=== PATIENT | female | born 1995 | race African-American/Black ===

== ENCOUNTER 2018-04-27 13:39 | Emergency (ER) | payer MEDICAID ==
[~2018-04-27] VITALS: Ht 160 cm; Wt 53.0 kg
[2018-04-27 13:46] VITALS: BP 104/51; PULSE 82; RESP 18; Ht 160 cm; Wt 53.0 kg
[2018-04-27] MEDS ORDERED: AZITHROMYCIN 250 MG TAB PO ONE (14:30)
[2018-04-27] MEDS ORDERED: CEFTRIAXONE 250 MG INJ IM ONE (14:30)
[2018-04-27] MEDS ORDERED: FLUC150T PO (17:10)
[2018-04-27] MEDS ORDERED: NITR-58 PO (17:10)
--- NOTE | 2018-04-27 19:44 | ERD ---
ER Documentation Chief Complaint Chief Complaint Dysuria, vaginal discharge (green) X 3 days HPI 22-year-old female patient with no significant past medical history presents to ED complaining of dysuria, vaginal discharge that started about 3 days ago. Patient reports the last time she was sexually active, was last week. States that she has been dealing with this for the last few months. Reports that she went to go follow-up with [facility] got a STD testing, which was negative. Reports that she had sexual intercourse after warts, and now is here with vaginal discharge that is green. Reports she is concerned for gonorrhea and chlamydia. States that she would like to be treated for it. Denies any fever, chills, abdominal pain, nausea, vomiting, diarrhea, neck stiffness. Reports that her last menstruation was on April 14, 2018. ROS All systems reviewed and are negative except as per history of present illness. Medications Home Meds Active Scripts Nitrofurantoin Monohyd Macrocr* (Macrobid*) 100 Mg Capsr, 100 MG PO BID for 7 Days, CAP Prov:DORIS DEJESUS PA-C 04/27/18 Fluconazole* (Diflucan*) 150 Mg Tablet, 150 MG PO ONCE, #1 TAB Prov:DORIS DEJESUS PA-C 04/27/18 PMhx/Soc Medical and Surgical Hx: pt denies Medical Hx, pt denies Surgical Hx Hx Alcohol Use: No Hx Substance Use: No Hx Tobacco Use: No Smoking Status: Never smoker FmHx Family History: No diabetes, No coronary disease Physical Exam Vitals Vital Signs Date Temp Pulse Resp B/P (MAP) Pulse Ox O2 O2 Flow FiO2 Time Delivery Rate 04/27/18 99.4 17:27 04/27/18 98.2 82 18 104/51 100 13:46 (68) Physical Exam Const: Nun-trt-wevszjtvm, well-nourished. In no acute distress. Head: Atraumatic, normocephalic Eyes: Normal Conjunctiva without injection. No purulent discharge. ENT: Normal external ear, nose. Moist oropharynx without tonsillar exudates. Non-erythematous pharynx. Uvula midline. No drooling. No trismus. Neck: No cervical midline tenderness. Full range of motion. No meningismus. No cervical lymphadenopathy. No JVD. Resp: Clear to auscultation bilaterally. No wheezing, rhonchi, rales, or crackles. No accessory muscle use. No retractions. Cardio: Regular rate and rhythm. No murmurs, rubs or gallops. Abd: Soft, nontender, non distended. Normal bowel sounds. No palpable masses. No rebound tenderness. No guarding. Negative McBurney's point. Negative psoas sign. Negative obturator sign. : See exam in [facility]. Skin: No petechiae or rashes Back: No midline tenderness. No CVA tenderness. Ext: No cyanosis, or edema. Neur: Awake and alert. Normal gait. Normal coordination. Psych: Normal Mood and Affect Results 24 hrs Laboratory Tests Test 04/27/18 14:39 04/27/18 14:47 POC Beta HCG, Qualitative NEGATIVE Chlamydia trachomatis RNA (TMA) NOT DETECTED Chlamydia/GC Comment SEE NOTE Neisseria gonorrhoeae RNA (TMA) NOT DETECTED Bedside Urine pH (LAB) 7.0 Bedside Urine Protein (LAB) Negative Bedside Urine Glucose (UA) Negative Bedside Urine Ketones (LAB) Negative Bedside Urine Blood Trace-intact Bedside Urine Nitrite (LAB) Negative Bedside Urine Leukocyte Esterase (L 3+ Current Medications Medications Dose Sig/Yony Start Time Status Last (Trade) Ordered Route PRN Stop Time Admin Dose Reason Admin 1,000 mg ONCE ONCE 04/27/18 DC 04/27/18 Azithromycin PO 14:30 04/27/18 14:42 (Zithromax) 14:31 Ceftriaxone 250 mg ONCE ONCE 04/27/18 DC 04/27/18 Sodium IM 14:30 04/27/18 14:42 (Rocephin) 14:31 Procedures/[facility] 22-year-old female patient with no significant past medical history presents to the ED complaining of dysuria, vaginal discharge that started 3 days ago. Patient is afebrile and nontoxic-appearing. Urine dip showed 3+ leukocyte esterase. Patient will be treated for urinary tract infection. 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 Patient was also treated prophylactically for gonorrhea and chlamydia. Patient was given ceftriaxone 250 mg IM and Zithromax 1 g here in the ED. Low suspicion for ectopic , ovarian torsion, gastritis, GERD, peptic ulcer disease, cholecystitis, choledocholithiasis, cholangitis, pancreatitis, appendicitis, bowel obstruction, ileus, volvulus, nephrolithiasis, pyelonephritis, hepatitis, perforated viscus, diverticulitis, strangulated/incarcerated hernia, DKA, acute abdomen, mesenteric ischemia or other emergent conditions. Diagnosis: Vaginal discharge, Dysuria Discharge medications: Macrobid, Diflucan Follow up with primary care physician in 1-2 days. Instructed patient to return to the ED sooner for any worsening symptoms. Patient's questions were answered. Patient is hemodynamically stable. Patient understood and agreed with discharge plan. Patient discharged stable. Disclaimer: Inadvertent spelling and grammatical errors are likely due to EHR/dictation software use and do not reflect on the overall quality of patient care. Also, please note that the electronic time recorded on this note does not necessarily reflect the actual time of the patient encounter. Departure Diagnosis: Primary Impression: Vaginal discharge Additional Impression: Dysuria Condition: Stable Patient Instructions: Dysuria, If You Think You Have an STD, Vaginal Infection: Yeast (Candidiasis) Referrals: COUNT INCLUDES THE [facility] YOU HAVE RECEIVED A MEDICAL SCREENING EXAM AND THE RESULTS INDICATE THAT YOU DO NOT HAVE A CONDITION THAT REQUIRES URGENT TREATMENT IN THE EMERGENCY DEPARTMENT. FURTHER EVALUATION AND TREATMENT OF YOUR CONDITION CAN WAIT UNTIL YOU ARE SEEN IN YOUR DOCTORS OFFICE WITHIN THE NEXT 1-2 DAYS. IT IS YOUR RESPONSIBILITY TO MAKE AN APPOINTMENT FOR FOLOW-UP CARE. IF YOU HAVE A PRIMARY DOCTOR --you should call your primary doctor and schedule an appointment IF YOU DO NOT HAVE A PRIMARY DOCTOR YOU CAN CALL OUR PHYSICIAN REFERRAL HOTLINE AT IF YOU CAN NOT AFFORD TO SEE A PHYSICIAN YOU CAN CHOSE FROM THE FOLLOWING COUNT INCLUDES THE [facility] CL[facility]ICS [facility] [address] [facility]. [facility] [address] [facility]. [facility] [address] [facility]. [facility] [address] [facility]. [facility] [address] [facility]. [facility]. [address] [facility]. [facility] YOU HAVE RECEIVED A MEDICAL SCREENING EXAM AND THE RESULTS INDICATE THAT YOU DO NOT HAVE A CONDITION THAT REQUIRES URGENT TREATMENT IN THE EMERGENCY DEPARTMENT. FURTHER EVALUATION AND TREATMENT OF YOUR CONDITION CAN WAIT UNTIL YOU ARE SEEN IN YOUR DOCTORS OFFICE WITHIN THE NEXT 1-2 DAYS. IT IS YOUR RESPONSIBILITY TO MAKE AN APPOINTMENT FOR FOLOW-UP CARE. IF YOU HAVE A PRIMARY DOCTOR --you should call your primary doctor and schedule and appointment IF YOU DO NOT HAVE A PRIMARY DOCTOR YOU CAN CALL OUR PHYSICIAN REFERRAL HOTLINE AT . IF YOU CAN NOT AFFORD TO SEE A PHYSICIAN YOU CAN CHOSE FROM THE FOLLOWING [facility] INSTITUTIONS: [facility] [address] [place] [address] [facility] [address] [place] [address] [facility] [address] [place] [address] 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 [address] [place] [address] [place] [address] [facility], [address], [facility] [address] [address] [address] [place] [address] [facility] [address] [place], [place] [address] [address] [facility] [address] - [address], [facility] [address] [address] [address] [facility] [address] [facility] [address] [address] [address] [place] [address] [facility] Hours: 8:00 am - 5:00 pm Additional Instructions: Call your primary care doctor TOMORROW for an appointment during the next 2-3 days.See the doctor sooner or return here if your condition worsens before your appointment time. DORIS DEJESUS PA-C Apr 27, 2018 19:44
== END 2018-04-27 17:28 | disposition home or self-care (01) ==
LOC: FTE 13:39
DX: N89.8 Other specified noninflammatory disorders of vagina (principal); R30.0 Dysuria
CPT/HCPCS: 81003; 81025; 87210; 87591; 96372; J0696; Z7502; Z7610

== ENCOUNTER 2018-08-31 22:17 | Emergency (ER) | payer MEDICAID, OTHER ==
[~2018-08-31] VITALS: Ht 160 cm; Wt 58.1 kg
[~2018-08-31 22:17] MED LIST: FLUC150T PO; NITR-58 PO
[2018-08-31 22:22] VITALS: BP 129/76; PULSE 72; RESP 16; Ht 160 cm; Wt 58.1 kg
[2018-08-31] MEDS ORDERED: CEFTRIAXONE 1 GM INJ IM ONE (23:00)
[2018-08-31] MEDS ORDERED: LIDOCAINE 1% (MPF) 5 ML VIAL INJ ONE (23:00)
[2018-08-31] MEDS ORDERED: AZITHROMYCIN 500 MG TAB PO ONE (23:00)
[2018-08-31] MEDS ORDERED: MICO100S4 VG (23:01)
[2018-08-31] MEDS ORDERED: METR500T PO (23:01)
--- NOTE | 2018-08-31 23:53 | ERD ---
ER Documentation Chief Complaint Chief Complaint PT green vaginal discharge x 3days HPI 22-year-old female presenting with vaginal discharge x3 days. Patient states she had this about 4 months ago and was treated with a shot in her bottom. She states her symptoms improved however they have returned today. She had an STD history of chlamydia in the past. No new sexual partners. G0 p.o. AO. LNMP 2 weeks ago. Social history denies. ROS All systems reviewed and are negative except as per history of present illness. Medications Home Meds Active Scripts Miconazole Nitrate (Miconazole 7) 100 Mg Supp.vag, 100 MG VG QHS, #7 SUPP.VAG Prov:PAULO BLACKWELL PA-C 08/31/18 Metronidazole* (Flagyl*) 500 Mg Tablet, 500 MG PO TID for 10 Days, TAB Prov:PAULO BLACKWELL PA-C 08/31/18 Nitrofurantoin Monohyd Macrocr* (Macrobid*) 100 Mg Capsr, 100 MG PO BID for 7 Days, CAP Prov:DORIS DEJESUS PA-C 04/27/18 Fluconazole* (Diflucan*) 150 Mg Tablet, 150 MG PO ONCE, #1 TAB Prov:DORIS DEJESUS PA-C 04/27/18 Allergies Allergies: Coded Allergies: No Known Allergy (Unverified , 08/31/18) PMhx/Soc Medical and Surgical Hx: pt denies Medical Hx, pt denies Surgical Hx History of Surgery: No Anesthesia Reaction: No Hx Neurological Disorder: No Hx Respiratory Disorders: No Hx Cardiac Disorders: No Hx Psychiatric Problems: No Hx Miscellaneous Medical Probl: No Hx Alcohol Use: No Hx Substance Use: No Hx Tobacco Use: No Smoking Status: Never smoker FmHx Family History: No diabetes, No coronary disease, No other Physical Exam Vitals Vital Signs Date Temp Pulse Resp B/P (MAP) Pulse Ox O2 O2 Flow FiO2 Time Delivery Rate 08/31/18 97.8 72 16 129/76 100 22:22 (93) Physical Exam GENERAL: The patient is well-appearing, well-nourished, in no acute distress CHEST: Clear to auscultation bilaterally. There are no rales, wheezes or rhonchi. HEART: Regular rate and rhythm. No murmurs, clicks, rubs or gallops. ABDOMEN:Soft, nontender and nondistended. Good bowel sounds. No rebound or guarding. No gross peritonitis. No gross organomegaly or masses. PELVIC: Extensive white and mildly green discharge noted within the vaginal vault. No CMT Results 24 hrs Laboratory Tests Test 08/31/18 23:17 08/31/18 23:18 POC Beta HCG, Qualitative NEGATIVE Bedside Urine pH (LAB) 7.0 Bedside Urine Protein (LAB) Negative Bedside Urine Glucose (UA) Negative Bedside Urine Ketones (LAB) Negative Bedside Urine Blood Trace-intact Bedside Urine Nitrite (LAB) Negative Bedside Urine Leukocyte Esterase (L 3+ Current Medications Medications Dose Sig/Yony Start Time Status Last (Trade) Ordered Route PRN Stop Time Admin Dose Reason Admin Ceftriaxone 1 gm ONCE ONCE 08/31/18 DC 08/31/18 Sodium IM 23:00 08/31/18 23:08 (Rocephin) 23:01 Lidocaine 5 ml ONCE ONCE 08/31/18 DC 08/31/18 (Xylocaine INJ 23:00 08/31/18 23:08 1% (Mpf)) 23:01 1,000 mg ONCE ONCE 08/31/18 DC 08/31/18 Azithromycin PO 23:00 08/31/18 23:08 (Zithromax) 23:01 Procedures/MDM ER course: Azithromycin and Rocephin given in ED. Urine culture sent. STD screening sent. MDM: 22-year-old female presents with vaginal discharge. Patient will be treated for STD as patient has copious amounts of discharge. Patient was told she had yeast in the past I will treat with miconazole. Patient is told symptoms change or worsen to return immediately to the ER. All questions answered at discharge Departure Diagnosis: Primary Impression: Vaginal discharge Condition: Stable Patient Instructions: Std, Suspected (Culture Only) Referrals: COMMUNITY CLINICS YOU HAVE RECEIVED A MEDICAL SCREENING EXAM AND THE RESULTS INDICATE THAT YOU DO NOT HAVE A CONDITION THAT REQUIRES URGENT TREATMENT IN THE EMERGENCY DEPARTMENT. FURTHER EVALUATION AND TREATMENT OF YOUR CONDITION CAN WAIT UNTIL YOU ARE SEEN IN YOUR DOCTORS OFFICE WITHIN THE NEXT 1-2 DAYS. IT IS YOUR RESPONSIBILITY TO MAKE AN APPOINTMENT FOR FOLOW-UP CARE. IF YOU HAVE A PRIMARY DOCTOR --you should call your primary doctor and schedule an appointment IF YOU DO NOT HAVE A PRIMARY DOCTOR YOU CAN CALL OUR PHYSICIAN REFERRAL HOTLINE AT IF YOU CAN NOT AFFORD TO SEE A PHYSICIAN YOU CAN CHOSE FROM THE FOLLOWING [facility] CLINICS [facility] [address] [facility] [address] [facility] [address] [facility] [address] [facility]. [facility] [address] [facility] [facility] [address] Additional Instructions: FOLLOW UP WITH YOUR PRIMARY CARE PHYSICIAN TOMORROW.Return to this facility if you are not improving as expected. PAULO BLACKWELL PA-C Aug 31, 2018 23:53
== END 2018-08-31 23:35 | disposition home or self-care (01) ==
LOC: FTE 22:17
DX: N89.8 Other specified noninflammatory disorders of vagina (principal)
CPT/HCPCS: 81003; 81025; 87591; 96372; 99284; J0696